=== PATIENT | female | born 1985 | race African-American/Black ===

== ENCOUNTER → 2020-11-25 00:40 | Outpatient (CLI) | payer OTHER, SELFPAY ==
[2020-11-25 17:52] LABS: SARS-CoV-2 RNA PCR Negative
== END ==
PROVIDERS: PCP Family Medicine; Visit Provider Obstetrics & Gynecology
DX: Z01.812 Encounter for preprocedural laboratory examination (principal); Z20.822 Contact with and (suspected) exposure to COVID-19
CPT/HCPCS: C9803; U0003; U0005

== ENCOUNTER 2020-11-28 01:24 | Day surgery (SDC) | payer OTHER, SELFPAY ==
[2020-11-23 13:53] VITALS: BMI 34.8
[2020-11-28] VITALS (10 sets, daily range): BP systolic 96–146; BP diastolic 53–92; PULSE 59–85; RESP 8–20; TEMP 36.1–36.2; O2SAT 96–100
[2020-11-28] MEDS: ACETAMINOPHEN 500 MG TABLET 1000 MG PO (10:52)
--- NOTE | 2020-11-28 10:53 | WPDANESEPPF ---
Anes - Initial Pre Proc Eval Procedure: Operation Date: 11/28/20 12:00 Proposed Procedures p Laparoscopic Bilateral Tubal Sterilization with Fulguration - Lena Prather MD Date/Time: 11/28/20 10:53 Surgeon: Lena Prather MD Pre Op Diagnosis: sterilization Patient Data Age: 34 Gender: F Height: 1.52 m Weight: 81.15 kg Allergies Allergy/AdvReac Type Severity Reaction Status Date / Time No Known Allergies Allergy Verified 11/28/20 10:47 Home Medications Medication Instructions Recorded Confirmed Type norethindrone (contraceptive) 0.35 mg PO DAILY 11/23/20 11/28/20 History Patient hx anesthesia problems: none Family hx anesthesia problems: none PMFSH Past Medical History Medical History (Updated 11/28/20 @ 11:27 by Lena Prather MD) Migraine Surgical History Surgical History H/O dilation and curettage Social History Social History Tobacco type: e-cigarettes/vaping Additional smoking assessment comments: 3 x a week Alcohol intake: current Drinks per week: 3 Substance use: never Living arrangements: with family Spiritual care concerns: No Anes - Eval Final PreProcedure Day of Procedure 11/28/20 10:53 Patient weight: obese Heart: regular rate and rhythm Lungs: clear to auscultation Airway: Mallampati scale class II Neurological: alert and oriented Last oral intake: >/= 8 hours ASA classification: III Emergent: no Anesthetic plan: proceed Anesthesia type and monitoring: general ETT and standard monitoring Informed Consent: The patient's anesthetic plan and its attendant risks and benefits were discussed with the patient/family/POA. Questions were solicited and answers provided to the satisfaction of the patient/family/POA.
[2020-11-28] MEDS: LACTATED RINGERS 1,000 ML 30 ML IV CONT ×2 (11:03→14:01)
[2020-11-28] MEDS: KETOROLAC 15 MG/ML VIAL (*BKC) IV PUSH (11:04)
[2020-11-28 11:10] LABS: Hematocrit 36.8 % (37.0-47.0); Mean Corpuscular HGB Conc 32.6 g/dl (32-36); Mean Corpuscular Hemoglobin 30.5 pg (26-34); Mean Corpuscular Volume 93.6 fl (80-100); Mean Platelet Volume 10.6 fl (7.4-10.4); Platelet Count Result 205 k/mm3 (150-375); Red Blood Count 3.93 M/mm3 (4.2-5.4); White Blood Count 8.6 K/mm3 (4.5-10.0)
--- NOTE | 2020-11-28 11:13 | SUR.PREOP ---
pt aware delay in previous procedure.
--- NOTE | 2020-11-28 11:22 | PM.HPGS ---
History of Present Illness History of Present Illness Consent: Risks, benefits, and alternatives have been discussed and questions answered. Patient agrees to proceed with procedure. Chief complaint: sterilization Narrative: Princess Phu Morales is a 34 year old female here for permanent sterilization. She has tried hormone contraceptives but has many side effects. Since she is done wtih childbearing, she would like to move forward wtih permanent sterilization. Risk/benefits/alternatives discussed Review of Systems Review of Systems: All systems reviewed & are unremarkable except as noted in HPI and below Constitutional: Constitutional: Reports no additional constitutional complaints Eyes: Eyes: Reports no additional eye complaints ENT: Reports Normal hearing present Cardiovascular: Cardiovascular: Reports no additional cardiovascular complaints Respiratory: Respiratory: Reports no additional respiratory complaints Gastrointestinal: Gastrointestinal: Reports no additional gastrointestinal complaints Genitourinary: Genitourinary: Reports no additional female genitourinary complaints Musculoskeletal: Musculoskeletal: Reports no additional musculoskeletal complaints Integumentary/Breasts: Skin/Breast: Reports system reviewed and no additional complaints, except as docu Neurologic: Reports system reviewed and no additional complaints, except as documented Psychiatric: Psychiatric: Reports no additional psychiatric complaints Allergic/Immunologic: Allergic/Immunologic: Reports no additional allergic/immunologic complaints [facility] Past Medical History Medical History (Updated 11/28/20 @ 11:27 by Lena Prather MD) Migraine Surgical History Surgical History H/O dilation and curettage Social History Social History Tobacco type: e-cigarettes/vaping Additional smoking assessment comments: 3 x a week Alcohol intake: current Drinks per week: 3 Substance use: never Living arrangements: with family Spiritual care concerns: No Meds Home Medications and Allergies Home Medications Medication Instructions Recorded Confirmed Type norethindrone (contraceptive) 0.35 mg PO DAILY 11/23/20 11/28/20 History Allergies Allergy/AdvReac Type Severity Reaction Status Date / Time No Known Allergies Allergy Verified 11/28/20 10:47 Vital Signs Vital Signs - 24 hr 11/28/20 11:07 Temperature 36.1 C L Pulse Rate 69 Respiratory Rate 16 Blood Pressure 96/77 L Pulse Oximetry 100 Exam Narrative: Exam Narrative: Young AA female appears younger than stated age Const: General: cooperative and healthy appearing HENMT: Head: normal to inspection Ears: hearing grossly normal bilaterally Chest: Chest palpation & inspection: normal inspection of the chest Resp: Effort & Inspection: normal respiratory effort Cardio: Rate: regular rate Rhythm: regular rhythm Heart sounds: S1 normal heart sound present and S2 normal heart sound present GI: Inspection: normal to inspection Skin: General skin exam: normal color and no rashes or lesions noted Psych: Appearance: grossly normal and well kempt Mental Status: mental status grossly normal Speech and movement: Normal speech and movement present Affect: normal affect Attitude: cooperative Thought process: Normal thought process present Assessment and Plan Assessment and plan (1) Encounter for sterilization: Code(s): Z30.2 - Encounter for sterilization Status: Acute Additional Plan Plan is to move forward with laparoscopic bilateral tubal sterilization by Fulguration of fallopian tubes. Risk/benefits/alternatives discussed. Consents signed
--- NOTE | 2020-11-28 11:51 | WPDHPUPDATE1 ---
History and Physical Update Update Date/Time: 11/28/20 11:51 History and Physical has been reviewed, including an updated exam of the patient. There are NO changes in the patient's condition. Risks, benefits, and alternatives have been discussed and questions answered. Patient agrees to proceed with procedure.
--- NOTE | 2020-11-28 14:03 | P.OP_ITS ---
Procedure Note - Detailed Date of Procedure 11/28/20 Pre-op Diagnosis sterilization Post-op Diagnosis same Procedure Performed laparoscopic bilateral tubal fulguration with bipolar cautery Surgeon Lena Prather MD Anesthesia general Indications desired sterilization Findings Uterus with large fundal fibroid. Bilateral tubes normal appearance. Free fluid of serosanguanous blood noted upon start of the surgery. No active bleeding as source located. Possibly recently ruptured ovarian cyst. Description of Procedure The patient was taken to the operating room where general anesthesia was found to be adequate. She was then prepared and draped in the dorsal supine position in [facility]. A wiley catheter was placed. A speculum was used to visualize the cervix and a single toothed tenaculum placed on the anterior lip of the cervix. Uterine manipulator placed in the cervix and affixed to the tenaculum. The speculum removed and attention was turned to the umbilicus which was injected with 0.5% marcaine with epinephrine, incised in the infraumbilical fold with a scalpel and subcutaneous tissue with hemostat and Veres needle used to entry into the peritoneum. Saline drop test was positive for entry. CO2 used for insufflation up to 15mmHG. A 5mm port was then placed with optical entry. The abdomen was free of adhesions. The patient was placed in trendelenberg and pelvis visualized. There was a small pool of serosanguanous fluid present in posterior culdesac. No active bleeding source. The uterus was elevated and found to have a fibroid at the fundus approxmately the same size as the uterus body itself. The tubes were easily visible. A 5mm port was then placed suprapubic with direct visualization by injecting the skin with local then incising with scalpel and camera directing entry of the trochar. The Kleppenger was then used to cauterize the right fallopian tube first in its entirety of visible mid segment portion and a second pass on the paratubal tissue. Similarly this was done on the left tube which did have a more curve to it. Images taken. Once the procedure was complete, the pneumoperitoneum was released and trochars removed. Skin closed with 4-0 monocryl in interrupted fashion and sterile dressings placed. The wiley and vaginal instruments were removed and there was no bleeding from tenaculum sites. the patient tolerated the procedure well. All sponge lap and needle counts were correct. Estimated Blood Loss 2 Urine Output 30 Drains No Packing No Pathology none sent Complications No immediate complications Condition stable Disposition PACU
[2020-11-28] MEDS: fentaNYL CITRATE INJ (*CRX) 100 MCG/2 ML VIAL 25 MCG IV PUSH ×5 (14:12→15:08)
[2020-11-28] MEDS: BUPIVACAINE/EPINEPHRINE 0.5% 50 ML VIAL (14:57)
[2020-11-28] MEDS: oxyCODONE HCL (*CRX) 5 MG TAB IR PO (15:38)
== END 2020-11-28 16:43 | disposition home or self-care (01) ==
PROVIDERS: PCP Internal Medicine; Visit Provider Obstetrics & Gynecology
PROC: (CPT 58671; principal; 2020-11-28 12:00)
DX: Z30.2 Encounter for sterilization (principal); D25.9 Leiomyoma of uterus, unspecified; F17.290 Nicotine dependence, other tobacco product, uncomplicated; E66.9 Obesity, unspecified; Z68.34 Body mass index [BMI] 34.0-34.9, adult
CPT/HCPCS: 58670; 36415; 85027; A9270; J0330; J1100; J1885; J2250; J2405; J2704; J3010; J7120